=== PATIENT | female | born 1990 | race Caucasian/White ===

== ENCOUNTER 2017-01-06 12:45 | Outpatient (CLI) | payer BC ==
[~2017-01-06] VITALS: Ht 162.6 cm; Wt 91.0 kg
[2017-01-06 14:06] VITALS: BP 119/64; PULSE 79; TEMP 98
[2017-01-06 15:39] VITALS: BP 105/46; PULSE 70
== END 2017-01-06 16:22 | disposition home or self-care (01) ==
LOC: COL.CAR 12:45
DX: R55 Syncope and collapse (principal); R07.89 Other chest pain; R00.2 Palpitations; R06.02 Shortness of breath